=== PATIENT | female | born 1990 | race Caucasian/White ===

== ENCOUNTER 2017-06-24 13:21 | Emergency (ER) | payer OTHER ==
[2017-06-24] MEDS ORDERED: SKIN ADHESIVE (DERMABOND) 1 EACH TP ONE (13:30)
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
[2017-06-24 13:38] VITALS: BP 117/80; RESP 18; TEMP 98.1
[2017-06-24] MEDS ORDERED: IBUPROFEN 600 MG TAB PO ONE (14:01)
[2017-06-24] MEDS ORDERED: ONDANSETRON DISINTEGRATING 4 MG TAB ONE (14:21)
[2017-06-24] MEDS ORDERED: ONDANSETRON DISINTEGRATING 4 MG TAB PO ONE (14:25)
[2017-06-24 14:30] VITALS: PULSE 77; O2SAT 99
== END 2017-06-24 14:30 | disposition home or self-care (01) ==
DX: S02.5XXA Fracture of tooth (traumatic), initial encounter for closed fracture (principal); S00.511A Abrasion of lip, initial encounter; J45.909 Unspecified asthma, uncomplicated; V19.9XXA Pedal cyclist (driver) (passenger) injured in unspecified traffic accident, initial encounter; Y92.410 Unspecified street and highway as the place of occurrence of the external cause; Y93.89 Activity, other specified